=== PATIENT | female | born 1935 | race Caucasian/White ===

== ENCOUNTER 2017-12-07 09:03 | Inpatient (IN) | payer MEDICARE ==
[~2017-12-07] VITALS: Ht 157.5 cm; Wt 82.6 kg
[2017-12-07] MEDS ORDERED: SODIUM CHLORIDE 0.9% 1,000 ML IV ONE (09:28)
[2017-12-07] MEDS ORDERED: SODIUM CHLORIDE FLUSH 10ML SYR IVF ONE (09:30)
[2017-12-07 09:52] LABS: BASOPHILS # (AUTO) 0.01 x10^3/uL (0-0.1); BASOPHILS % (AUTO) 0 % (0-1); EOSINOPHILS % (AUTO) 0 % (1-7); LYMPHOCYTES # (AUTO) 1.37 x10^3/uL (1-3.4); LYMPHOCYTES % (AUTO) 21 % (22-44); MD NO; MEAN CORPUSCULAR HGB CONC 32.7 g/dL (32.4-35.8); MEAN CORPUSCULAR VOLUME 94.6 fL (80-100); MEAN PLATELET VOLUME 8.2 fL (7.4-10.4); MONOCYTES # (AUTO) 0.36 x10^3/uL (0.2-0.8); MONOCYTES % (AUTO) 6 % (2-9); NEUTROPHILS # (AUTO) 4.74 x10^3/uL (1.8-6.8); NEUTROPHILS % (AUTO) 73 % (42-75); PLATELET COUNT 305 x10^3/uL (130-400); RED BLOOD COUNT 4.29 x10^6/uL (3.82-5.3); RED CELL DISTRIBUTION WIDTH 15.4 % (9.6-15.2)
[2017-12-07 10:03] LABS: ALANINE AMINOTRANSFERASE 37 U/L (12-78); ALBUMIN 3.7 g/dL (3.4-5.0); ANION GAP 6 mmol/L (5-15); CALCIUM 9.3 mg/dL (8.5-10.1); CHLORIDE 108 mmol/L (98-107); CREATININE 0.92 mg/dL (0.55-1.02)
[2017-12-07 10:08] LABS: ALKALINE PHOSPHATASE 72 U/L (45-117); BILIRUBIN,TOTAL 0.6 mg/dL (0.2-1.0); TOTAL PROTEIN 7.4 g/dL (6.4-8.2); TROPONIN I < 0.015 ng/mL (0.000-0.045)
[2017-12-07 11:12] LABS: MICROSCOPIC AUTO
[2017-12-07 11:13] LABS: CULTURE INDICATED? YES
[2017-12-07] MEDS ORDERED: CEFTRIAXONE PMX 1GM/50ML 50 ML IV ONE (11:30)
[2017-12-07] MEDS ORDERED: CEFTRIAXONE PMX 1GM/50ML 50 ML ONE (11:34)
[2017-12-07] MEDS ORDERED: levemir (12:28)
[2017-12-07] MEDS ORDERED: humalog (12:28)
[2017-12-07] MEDS ORDERED: metformin (12:28)
[2017-12-07] MEDS ORDERED: glipizide (12:31)
[2017-12-07] MEDS ORDERED: SODIUM CHLORIDE 0.9% 1,000 ML IV SCH (12:47)
[2017-12-07] MEDS ORDERED: LABETALOL 5MG/ML, 20ML IVPush PRN (13:00)
[2017-12-07] MEDS ORDERED: GLUCAGON 1 MG IM PRN (13:00)
[2017-12-07] MEDS ORDERED: DEXTROSE 4 GM TAB.CHEW PO PRN (13:00)
[2017-12-07] MEDS ORDERED: DEXTROSE 50%, 50ML SYRINGE IVPush PRN (13:00)
[2017-12-07 13:35] LABS: HEMOGLOBIN A1C 8.6 % (4.2-6.3)
[2017-12-07 13:36] LABS: THYROID STIMULATING HORMONE 0.879 mIU/L (0.358-3.740)
[2017-12-07 14:45] VITALS: BP 125/70
[2017-12-07] MEDS: POTASSIUM CHLORIDE 20 MEQ TAB.ER.PRT PO ONE ×2 (15:48→15:50)
[2017-12-07] MEDS: HEPARIN 5,000 UNITS/ML, 1ML SQ SCH ×2 (15:48→21:59)
[2017-12-07] MEDS: INSULIN LISPRO 100 UNITS/ML, PEN SQ-INSULIN SCH ×2 (16:00→22:00)
[2017-12-07 17:46] VITALS: BP 138/76
[2017-12-07 19:17] VITALS: BP 123/64
[2017-12-07] MEDS: SODIUM CHLORIDE FLUSH 10ML SYR IVF SCH (22:00)
[2017-12-08 00:15] VITALS: BP 140/65
[2017-12-08] MEDS: SODIUM CHLORIDE 0.9% 1,000 ML IV SCH ×2 (01:56→19:33)
[2017-12-08 05:54] LABS: BASOPHILS # (AUTO) 0.02 x10^3/uL (0-0.1); BASOPHILS % (AUTO) 0 % (0-1); EOSINOPHILS % (AUTO) 0 % (1-7); LYMPHOCYTES # (AUTO) 2.12 x10^3/uL (1-3.4); LYMPHOCYTES % (AUTO) 29 % (22-44); MD NO; MEAN CORPUSCULAR HEMOGLOBIN 31.4 pg (27.0-34.8); MEAN CORPUSCULAR HGB CONC 33.1 g/dL (32.4-35.8); MEAN CORPUSCULAR VOLUME 94.8 fL (80-100); MEAN PLATELET VOLUME 8.2 fL (7.4-10.4); MONOCYTES # (AUTO) 0.44 x10^3/uL (0.2-0.8); MONOCYTES % (AUTO) 6 % (2-9); NEUTROPHILS % (AUTO) 65 % (42-75); PLATELET COUNT 244 x10^3/uL (130-400); RED BLOOD COUNT 3.48 x10^6/uL (3.82-5.3); RED CELL DISTRIBUTION WIDTH 15.3 % (9.6-15.2)
[2017-12-08 05:55] LABS: ANION GAP 3 mmol/L (5-15); CALCIUM 8.7 mg/dL (8.5-10.1); CHLORIDE 111 mmol/L (98-107); CREATININE 0.74 mg/dL (0.55-1.02)
[2017-12-08 05:56] LABS: CHOLESTEROL, TOTAL 92 mg/dL (140-239)
[2017-12-08 05:58] LABS: CHOL/HDL RATIO 2.8; HDL CHOL % 36 % (28-40); HDL CHOLESTEROL (DIRECT) 33 mg/dL (40-60); LDL CHOLESTEROL,CALCULATED 28 mg/dL (54-169); LDL/HDL RATIO 0.8 (0.5-3.0); TRIGLYCERIDES 156 mg/dL (50-200); VLDL CHOLESTEROL 31 mg/dL (0-25)
[2017-12-08] MEDS: NITROFURANTOIN 50 MG CAPSULE PO SCH ×2 (05:59→11:22)
[2017-12-08] MEDS: HEPARIN 5,000 UNITS/ML, 1ML SQ SCH ×2 (05:59→12:50)
[2017-12-08] MEDS ORDERED: ACETAMINOPHEN 500 MG TABLET PO PRN (06:30)
[2017-12-08 07:20] VITALS: BP 162/68
[2017-12-08] MEDS: INSULIN LISPRO 100 UNITS/ML, PEN SQ-INSULIN SCH ×3 (07:43→17:19)
[2017-12-08] MEDS: SODIUM CHLORIDE FLUSH 10ML SYR IVF SCH ×2 (07:43→19:34)
[2017-12-08 15:00] VITALS: BP 148/67
[2017-12-08] MEDS ORDERED: CEFTRIAXONE 2 GM in SODIUM CHLORIDE 0.9% 50 ML IV SCH (17:00)
[2017-12-08] MEDS ORDERED: CEFTAZIDIME PMX 2 GM/50ML 50 ML IV SCH (17:30)
[2017-12-08 19:18] VITALS: BP 139/62
[2017-12-08] MEDS ORDERED: INSULIN GLARGINE 100 UNITS/ML, PEN SQ-INSULIN SCH (21:00)
== END 2017-12-08 20:30 | disposition left against medical advice (07) | DRG 637 ==
LOC: ED 11:55 → EDIP 12:00 → 3NE 13:29
PROVIDERS: ADMIT Internal Medicine; ATTEND Internal Medicine
DX: E11.649 Type 2 diabetes mellitus with hypoglycemia without coma (principal); G93.41 Metabolic encephalopathy; E87.2 Acidosis; E86.0 Dehydration; N39.0 Urinary tract infection, site not specified; R60.9 Edema, unspecified; E87.6 Hypokalemia; R68.0 Hypothermia, not associated with low environmental temperature; R60.0 Localized edema; M17.11 Unilateral primary osteoarthritis, right knee; Z79.4 Long term (current) use of insulin
CPT/HCPCS: 36415; 71045; 80048; 80053; 80061; 80307; 81001; 82140; 82550; 82962; 83036; 83605; 83735; 84100; 84443; 84484; 85025; 87077; 87086; 87186; 93005; 93970; 99285; J0696; J1644; J1815; J7030